=== PATIENT | male | born 1975 | race Two or more races ===

== ENCOUNTER 2017-04-29 09:37 | Emergency (ER) | payer OTHER ==
[~2017-04-29] VITALS: Ht 172.7 cm; Wt 83.9 kg
[2017-04-29 09:37] VITALS: BP 121/79
--- NOTE | 2017-04-29 09:42 | NUR ---
AAOX2, BIBRA 88 FROM THE [place] FOR PSYCH EVAL, PATIENT WAS AGITATED AND STATED THAT HE WANTED TO HURT HIMSELF BUT NO PLAN AT THIS TIME. SKIN IS WARM AND DRY. RESP IS EVEN AND UNLABORED WITH NAD NOTED. DR JERRY AT BS FOR EVAL.
[2017-04-29] MEDS ORDERED: OLANZAPINE 10 MG VIAL IM ONE ×2 (09:58→10:00)
[2017-04-29 10:22] LABS: BASOPHILS # (AUTO) 0.1 /CMM (0.0-0.2); BASOPHILS % (AUTO) 0.7 % (0.0-2.0); EOSINOPHILS # (AUTO) 0.1 /CMM (0.0-0.7); EOSINOPHILS % (AUTO) 1.4 % (0.0-6.0); HEMATOCRIT 38 % (39-51); LYMPHOCYTES # (AUTO) 2.2 /CMM (0.8-4.8); LYMPHOCYTES % (AUTO) 26.1 % (20.0-44.0); MEAN CORPUSCULAR HEMOGLOBIN 32 PG (26.0-33.0); MEAN CORPUSCULAR HGB CONC 34 g/dl (31.0-36.0); MEAN CORPUSCULAR VOLUME 95 fL (80-96); MONOCYTES # (AUTO) 0.7 /CMM (0.1-1.30); MONOCYTES % (AUTO) 8.5 % (2.0-12.0); NEUTROPHILS # (AUTO) 5.4 /CMM (1.8-8.9); NEUTROPHILS % (AUTO) 63.3 % (43.0-81.0); PLATELET COUNT (AUTO) 371 /CMM (150-450); RDW COEFFICIENT OF VARIATION 12.9 (11.5-15.0); RED BLOOD CELL COUNT(AUTO) 4.02 MIL/uL (4.5-6.0); WHITE BLOOD COUNT (AUTO) 8.5 K/uL (4.3-11.0)
--- NOTE | 2017-04-29 10:24 | NUR ---
PATIENT UNABLE TO URINATE AT THIS MOMENT. DR JERRY MADE AWARE.
[2017-04-29 10:34] LABS: APPEARANCE,URINE Clear (CLEAR); BILIRUBIN,URINE Negative (NEGATIVE); BLOOD, URINE Negative Ery/uL (NEGATIVE); COLOR,URINE Yellow (YELLOW); KETONES,URINE Negative (NEGATIVE); LEUKOCYTE ESTERASE ,URINE Negative (NEGATIVE); NITRITE, URINE Negative (NEGATIVE); PROTEIN,URINE Negative (NEGATIVE); UGLUCOSE Negative (NEGATIVE); UROBILINOGEN,URINE 0.2 EU/dL (0.2)
[2017-04-29 10:37] LABS: ALANINE AMINOTRANSFERASE 19 U/L (12-78); ALBUMIN 3.9 g/dL (3.4-5.0); ALCOHOL, BLOOD < 3 mg/dL (0-0); ALKALINE PHOSPHATASE 85 U/L (46-116); ASPARTATE AMINOTRANSFERASE 22 U/L (15-37); BILIRUBIN,DIRECT 0.1 mg/dL (0.0-0.2); BILIRUBIN,TOTAL 0.4 mg/dL (0.2-1.0); CALCIUM, SERUM 8.5 mg/dL (8.5-10.1); CARBON DIOXIDE 26 mmol/L (21-32); CHLORIDE 103 mmol/L (98-107); CREATININE 0.8 mg/dL (0.6-1.3); GLUCOSE 95 mg/dL (74-106); POTASSIUM 3.9 mmol/L (3.5-5.1); SALICYLATE 2.8 mg/dL (2.8-20.0); SODIUM SERUM 138 mmol/L (136-145); TOTAL PROTEIN, SERUM 6.9 g/dL (6.4-8.2); UREA NITROGEN, BLOOD 13 mg/dL (7-18)
[2017-04-29 10:38] LABS: ACETAMINOPHEN < 10 ug/ml (10-30)
--- NOTE | 2017-04-29 13:38 | NUR ---
CALLED [facility] FOR BLS TRANSPORT. ETA 1 HOUR
--- NOTE | 2017-04-29 14:30 | NUR ---
Patient discharged to [facility] in stable condition. Written and verbal after care instructions given. Patient verbalizes understanding of instruction. REPORT GIVEN BY BIANKA RASCON TO GUSTABO CARLTON.
== END 2017-04-29 14:34 ==
LOC: ER 09:39 → EDBD 09:39 → ER 14:34
DX: F31.9 Bipolar disorder, unspecified (principal); F29 Unspecified psychosis not due to a substance or known physiological condition; F17.200 Nicotine dependence, unspecified, uncomplicated; Z98.890 Other specified postprocedural states
CPT/HCPCS: 36415; 80048-TC; 80076-TC; 80305; 81000-TC; 85025-TC; A4606; G0480; J3490; Z7610

== ENCOUNTER 2018-03-31 08:20 | Emergency (ER) | payer MEDICARE, MEDICAID ==
[~2018-03-31] VITALS: Ht 170.2 cm; Wt 83.9 kg
--- NOTE | 2018-03-31 08:32 | NUR ---
A/OX3, AMBULATORY IN A STEADY GAIT C/O ABD PAIN W/ N/V X 1 DAY. NAD VSS RR EVEN AND UNLABORED. PENDING ER MD VILLAGRAN
[2018-03-31 08:56] LABS: BASOPHILS # (AUTO) 0.2 /CMM (0.0-0.2); BASOPHILS % (AUTO) 1.2 % (0.0-2.0); EOSINOPHILS % (AUTO) 0.4 % (0.0-6.0); HEMATOCRIT 37 % (39-51); HEMOGLOBIN 12.4 g/dL (13.5-17.5); LYMPHOCYTES # (AUTO) 1.8 /CMM (0.8-4.8); LYMPHOCYTES % (AUTO) 11.9 % (20.0-44.0); MEAN CORPUSCULAR HEMOGLOBIN 32 PG (26.0-33.0); MEAN CORPUSCULAR HGB CONC 34 g/dl (31.0-36.0); MEAN CORPUSCULAR VOLUME 96 fL (80-96); MONOCYTES % (AUTO) 6.5 % (2.0-12.0); NEUTROPHILS # (AUTO) 11.7 /CMM (1.8-8.9); PLATELET COUNT (AUTO) 362 /CMM (150-450); RDW COEFFICIENT OF VARIATION 13.9 (11.5-15.0); RED BLOOD CELL COUNT(AUTO) 3.82 MIL/uL (4.5-6.0); WHITE BLOOD COUNT (AUTO) 14.8 K/uL (4.3-11.0)
[2018-03-31 09:06] LABS: CALCIUM, SERUM 8.6 mg/dL (8.5-10.1); CREATININE 0.8 mg/dL (0.6-1.3); POTASSIUM 3.3 mmol/L (3.5-5.1)
[2018-03-31 09:12] LABS: ALBUMIN 3.7 g/dL (3.4-5.0); BILIRUBIN,DIRECT 0.1 mg/dL (0.0-0.2); BILIRUBIN,TOTAL 0.3 mg/dL (0.2-1.0); TOTAL PROTEIN, SERUM 7.1 g/dL (6.4-8.2)
[2018-03-31] MEDS ORDERED: ONDANSETRON HCL/PF 4 MG/2 ML VIAL ONE (10:00)
[2018-03-31] MEDS ORDERED: ONDANSETRON HCL/PF - ER 4 MG/2 ML VIAL IV ONE (10:00)
--- NOTE | 2018-03-31 10:07 | NUR ---
IV removed. Catheter intact and site benign. Pressure and 4x4 applied to site. No bleeding noted.Patient discharged to home in stable condition. Written and verbal after care instructions given. Patient verbalizes understanding of instruction.
[2018-03-31 10:09] VITALS: BP 138/84
== END 2018-03-31 10:10 | disposition home or self-care (01) ==
LOC: ER 08:21
DX: R10.84 Generalized abdominal pain (principal); F19.10 Other psychoactive substance abuse, uncomplicated; F31.9 Bipolar disorder, unspecified; Z98.890 Other specified postprocedural states; F17.200 Nicotine dependence, unspecified, uncomplicated; F10.10 Alcohol abuse, uncomplicated; Y90.9 Presence of alcohol in blood, level not specified; Z60.2 Problems related to living alone
CPT/HCPCS: 36415; 74176; 80048; 80076; 83690; 85025; 96374; 99285; A4606; J2405; Z7610

== ENCOUNTER 2018-04-03 19:20 | Emergency (ER) | payer MEDICARE, MEDICAID ==
[~2018-04-03] VITALS: Ht 172.7 cm; Wt 90.7 kg
--- NOTE | 2018-04-03 19:36 | NUR ---
PT VIGNESH FROOM THE STREETS TO ER BED 13. PER REPORT, PT WAS NOTED TO BE EXHIBITING BIZZARRE BEHAVIOR, PT WAS SEEN IN ED MULTIPLE TIMES FOR DRUG RELATED ISSUES. AT THIS TIME, PT APPEARS ALTERED, AGITATED AND AGRESSIVE TO STAFF. EVELIA DIAMOND CUTTER AT BEDSIDE. RESTRAINTS ORDERED AND CARRIED OUT.
[2018-04-03] MEDS ORDERED: OLANZAPINE 10 MG VIAL IM ONE (20:00)
[2018-04-03] MEDS ORDERED: diphenhydrAMINE HCL 50 MG/ML VIAL ONE (20:06)
[2018-04-03] MEDS ORDERED: HALOPERIDOL LACTATE INJ 5 MG/ML VIAL ONE (20:06)
[2018-04-03] MEDS ORDERED: LORAZEPAM INJ 2 MG/ML VIAL ONE (20:08)
--- NOTE | 2018-04-03 20:11 | NUR ---
PT MEDICATED ORDERED. SEE EMAR.
[2018-04-03] MEDS ORDERED: diphenhydrAMINE HCL 50 MG/ML VIAL IM/IV ONE (20:30)
[2018-04-03] MEDS ORDERED: LORAZEPAM INJ 2 MG/ML VIAL IM/IV ONE (20:30)
[2018-04-03] MEDS ORDERED: HALOPERIDOL LACTATE INJ 5 MG/ML VIAL IM ONE (20:30)
--- NOTE | 2018-04-03 20:43 | NUR ---
RESPIRATORY THERAPY DIRECTOR AT BEDSIDE FOR BLOOD DRAW.
[2018-04-03 20:50] LABS: BASOPHILS # (AUTO) 0.3 /CMM (0.0-0.2); BASOPHILS % (AUTO) 2.2 % (0.0-2.0); EOSINOPHILS % (AUTO) 0.3 % (0.0-6.0); HEMATOCRIT 38 % (39-51); HEMOGLOBIN 12.5 g/dL (13.5-17.5); LYMPHOCYTES # (AUTO) 2.3 /CMM (0.8-4.8); LYMPHOCYTES % (AUTO) 18.5 % (20.0-44.0); MEAN CORPUSCULAR HEMOGLOBIN 32 PG (26.0-33.0); MEAN CORPUSCULAR HGB CONC 33 g/dl (31.0-36.0); MEAN CORPUSCULAR VOLUME 97 fL (80-96); MONOCYTES # (AUTO) 1.3 /CMM (0.1-1.30); MONOCYTES % (AUTO) 10.3 % (2.0-12.0); NEUTROPHILS # (AUTO) 8.4 /CMM (1.8-8.9); NEUTROPHILS % (AUTO) 68.7 % (43.0-81.0); PLATELET COUNT (AUTO) 402 /CMM (150-450); RDW COEFFICIENT OF VARIATION 13.1 (11.5-15.0); RED BLOOD CELL COUNT(AUTO) 3.88 MIL/uL (4.5-6.0); WHITE BLOOD COUNT (AUTO) 12.3 K/uL (4.3-11.0)
[2018-04-03 21:15] LABS: CALCIUM, SERUM 9.4 mg/dL (8.5-10.1); CARBON DIOXIDE 24 mmol/L (21-32); CHLORIDE 100 mmol/L (98-107); GLUCOSE 122 mg/dL (74-106); SODIUM SERUM 135 mmol/L (136-145); UREA NITROGEN, BLOOD 12 mg/dL (7-18)
[2018-04-03 21:17] LABS: POTASSIUM 2.8 mmol/L (3.5-5.1)
--- NOTE | 2018-04-03 21:20 | NUR ---
PT IS SLEEPING, RESTRAINT D/C'D PER EVELIA ENTRY LEVEL ASSISTANT MANAGER ORDER. WILL CONTINUE TO MONITOR.
[2018-04-03 21:21] LABS: ALANINE AMINOTRANSFERASE 48 U/L (12-78); ALBUMIN 4.1 g/dL (3.4-5.0); ALCOHOL, BLOOD < 3 mg/dL (0-0); ALKALINE PHOSPHATASE 90 U/L (46-116); ASPARTATE AMINOTRANSFERASE 57 U/L (15-37); BILIRUBIN,DIRECT 0.1 mg/dL (0.0-0.2); BILIRUBIN,TOTAL 0.5 mg/dL (0.2-1.0); TOTAL PROTEIN, SERUM 8.2 g/dL (6.4-8.2)
[2018-04-03] MEDS ORDERED: POTASSIUM CL. PREMIX PERIPHER. 50 ML IV SCH (21:30)
[2018-04-03] MEDS ORDERED: POTASSIUM CL. PREMIX PERIPHER. 100 ML ONE ×2 (21:33→23:14)
[2018-04-03] MEDS: POTASSIUM CL. PREMIX PERIPHER. 50 ML IV SCH ×3 (21:34→23:38)
--- NOTE | 2018-04-03 21:43 | NUR ---
PT SLEEPING IN BED. ON MONITOR W/ STABLE VITALS. WILL CONTINUE TO MONITOR.
--- NOTE | 2018-04-04 | NUR ---
REPORT TO CHARGE NURSE HUNTER FOR JANNETH.
[2018-04-04] MEDS ORDERED: POTASSIUM CL. PREMIX PERIPHER. 50 ML ONE (01:05)
--- NOTE | 2018-04-04 01:10 | NUR ---
MEDICATED WITH 3RD POTASSIUM BAG; IVPB VIA 18G LT HAND; END TIME 0210. ON MONITOR. NO S/S OF DISTRESS NOTED. RESP EVEN AND UNLABORED.
--- NOTE | 2018-04-04 02:15 | NUR ---
4TH POTASSIUM IVPB VIA 18G LT HAND; END TIME 314. REMAINS RESTING WITH NO S/S OF DISTRESS. RESP EVEN AND UNLABORED. STILL ON MONITOR.
--- NOTE | 2018-04-04 03:25 | NUR ---
ALL MEDS COMPLETED; NAD NOTED. RESP EVEN AND UNLABORED. STILL MONITORED.
--- NOTE | 2018-04-04 03:36 | NUR ---
LAB AT BEDSIDE FOR REPEAT POTASSIUM DRAW.
[2018-04-04 03:54] LABS: CALCIUM, SERUM 8.8 mg/dL (8.5-10.1); CREATININE 0.8 mg/dL (0.6-1.3); POTASSIUM 3.6 mmol/L (3.5-5.1)
--- NOTE | 2018-04-04 04:49 | NUR ---
GIVEN ICE WATER REQUESTED.
--- NOTE | 2018-04-04 05:18 | NUR ---
AAO X4; DENIES SI/HI OR ANY MEDICAL C/O. Patient discharged to home in stable condition. Written and verbal after care instructions given. Patient verbalizes understanding of instruction. IV removed. Catheter intact and site benign. Pressure and 4x4 applied to site. No bleeding noted. Ambulatory with a steady gait
[2018-04-04 05:19] VITALS: BP 126/73
== END 2018-04-04 05:19 | disposition home or self-care (01) ==
LOC: ER 19:23
DX: F29 Unspecified psychosis not due to a substance or known physiological condition (principal); E87.6 Hypokalemia; F31.9 Bipolar disorder, unspecified; F10.10 Alcohol abuse, uncomplicated; F17.200 Nicotine dependence, unspecified, uncomplicated; Y90.0 Blood alcohol level of less than 20 mg/100 ml; Z98.890 Other specified postprocedural states; Z60.2 Problems related to living alone
CPT/HCPCS: 36415 ×2; 80048 ×2; 80076; 85025; 96365; 96366; 96372 ×3; 99285; A4606; G0480; J1200; J1630; J2060; J3480 ×3; Z7610

== ENCOUNTER 2019-08-09 07:27 | Emergency (ER) | payer MEDICARE, MEDICAID ==
[~2019-08-09] VITALS: Ht 172.7 cm; Wt 82.6 kg
--- NOTE | 2019-08-09 07:35 | NUR ---
bibra39, and [employer], not in custody, came in for bizzarre behavior, ruNNING, in to traffic per [employer]. PT IS VERBAL BUT NOT ABLE TO FORMULATE PROPER SPEECH. FLIGHT OF IDEAS NOTED. PT IS ALERT X1 BREATHING EVEN AND UNLABORED. AWAITING TO BE SEEN BY
--- NOTE | 2019-08-09 07:40 | NUR ---
called security for wanding
[2019-08-09] MEDS ORDERED: HALOPERIDOL LACTATE INJ 5 MG/ML VIAL ONE ×2 (07:42→07:43)
[2019-08-09] MEDS ORDERED: LORAZEPAM INJ 2 MG/ML VIAL ONE ×2 (07:42→07:44)
[2019-08-09 07:51] LABS: BASOPHILS # (AUTO) 0.1 /CMM (0.0-0.2); BASOPHILS % (AUTO) 0.6 % (0.0-2.0); EOSINOPHILS % (AUTO) 0.5 % (0.0-6.0); HEMATOCRIT 38 % (39-51); HEMOGLOBIN 12.7 g/dL (13.5-17.5); LYMPHOCYTES # (AUTO) 1.1 /CMM (0.8-4.8); LYMPHOCYTES % (AUTO) 11.4 % (20.0-44.0); MEAN CORPUSCULAR HGB CONC 33 g/dl (31.0-36.0); MEAN CORPUSCULAR VOLUME 98 fL (80-96); MONOCYTES # (AUTO) 0.7 /CMM (0.1-1.30); MONOCYTES % (AUTO) 7.2 % (2.0-12.0); NEUTROPHILS # (AUTO) 7.9 /CMM (1.8-8.9); NEUTROPHILS % (AUTO) 80.3 % (43.0-81.0); PLATELET COUNT (AUTO) 324 /CMM (150-450); RED BLOOD CELL COUNT(AUTO) 3.91 MIL/uL (4.5-6.0); WHITE BLOOD COUNT (AUTO) 9.8 K/uL (4.3-11.0)
[2019-08-09 07:59] LABS: CALCIUM, SERUM 9.2 mg/dL (8.5-10.1); CARBON DIOXIDE 23 mmol/L (21-32); CHLORIDE 102 mmol/L (98-107); CREATININE 0.9 mg/dL (0.6-1.3); GLUCOSE 83 mg/dL (74-106); POTASSIUM 3.9 mmol/L (3.5-5.1); SODIUM SERUM 139 mmol/L (136-145); UREA NITROGEN, BLOOD 20 mg/dL (7-18)
[2019-08-09] MEDS ORDERED: HALOPERIDOL LACTATE INJ 5 MG/ML VIAL IM ONE (08:00)
[2019-08-09] MEDS ORDERED: LORAZEPAM INJ 2 MG/ML VIAL IM ONE (08:00)
[2019-08-09 08:04] LABS: ALANINE AMINOTRANSFERASE 40 U/L (12-78); ALBUMIN 4.3 g/dL (3.4-5.0); ALCOHOL, BLOOD < 3 mg/dL (0-0); ALKALINE PHOSPHATASE 79 U/L (46-116); ASPARTATE AMINOTRANSFERASE 56 U/L (15-37); BILIRUBIN,DIRECT 0.2 mg/dL (0.0-0.2); BILIRUBIN,TOTAL 0.7 mg/dL (0.2-1.0); TOTAL PROTEIN, SERUM 7.7 g/dL (6.4-8.2)
[2019-08-09 08:05] LABS: ACETAMINOPHEN 0 ug/ml (10-30); SALICYLATE 1.7 mg/dL (2.8-20.0)
--- NOTE | 2019-08-09 08:20 | NUR ---
WATER PROVIDED TO PT. PT NOT ABLE TO VOID
--- NOTE | 2019-08-09 09:08 | NUR ---
PT IS ASLEEP, VS ARE STABLE WITH NO DISTRESS NOTED. WILL CONITNUE TO MONITOR
--- NOTE | 2019-08-09 11:05 | NUR ---
PT ASLEEP WITH NO DISTRESS.
--- NOTE | 2019-08-09 14:06 | NUR ---
PT REMAINS ASLEEP WITH NO DISTRESS. OFFERED FOOD TO PT BUT DECLINED. WILL CONTINUE TO MONITOR
--- NOTE | 2019-08-09 16:00 | NUR ---
PT AWAKE AND FOOD PROVIDED FOR PATIENT
[2019-08-09 16:10] LABS: APPEARANCE,URINE Clear (CLEAR); BILIRUBIN,URINE SMALL (NEGATIVE); BLOOD, URINE Negative Ery/uL (NEGATIVE); COLOR,URINE Dark Yellow (YELLOW); KETONES,URINE 40 (NEGATIVE); LEUKOCYTE ESTERASE ,URINE Negative (NEGATIVE); NITRITE, URINE Negative (NEGATIVE); PH,URINE 5.5 (5.0-8.0); PROTEIN,URINE 30 mg/dl (NEGATIVE); UGLUCOSE Negative (NEGATIVE)
[2019-08-09 16:17] LABS: BACTERIA,URINE Few /HPF (None Seen); MUCUS,URINE Few /LPF (None Seen); SPERM,URINE Few /HPF (None Seen); SQUAMOUS EPITHELIAL CELL,UR Rare /HPF (None Seen); WBC,URINE 0-2 /HPF (0-3)
[2019-08-09 17:29] VITALS: BP 117/68
--- NOTE | 2019-08-09 17:48 | NUR ---
Patient given written and verbal discharge instructions. Patient verbalizes understanding of instructions. Patient is ambulatory with steady gait. Refuses offer of senior care placement. Patient given list of available shelters in surrounding area.
== END 2019-08-09 17:50 | disposition home or self-care (01) ==
LOC: ER 07:28
DX: F31.9 Bipolar disorder, unspecified (principal); F19.10 Other psychoactive substance abuse, uncomplicated; F23 Brief psychotic disorder; F10.10 Alcohol abuse, uncomplicated; F17.200 Nicotine dependence, unspecified, uncomplicated; Y90.0 Blood alcohol level of less than 20 mg/100 ml; Z98.890 Other specified postprocedural states; Z60.2 Problems related to living alone
CPT/HCPCS: 36415; 80048; 80076; 80305; 80307; 80329; 81001; 85025; 96372 ×2; 99284; G0480; J1630; J2060; 81000-TC

== ENCOUNTER 2020-06-28 02:05 | Emergency (ER) | payer MEDICARE, OTHER ==
--- NOTE | 2020-06-28 02:06 | NUR ---
ASKED PT TO WEAR MASK, PT REFUSE AND STATES "I DON'T NEED THIS, I'M OUT OF HERE."
== END 2020-06-28 03:57 | disposition left against medical advice (07) ==
LOC: ER 02:08
DX: Z53.21 Procedure and treatment not carried out due to patient leaving prior to being seen by health care provider (principal); F31.9 Bipolar disorder, unspecified; F17.200 Nicotine dependence, unspecified, uncomplicated; Z98.890 Other specified postprocedural states; Z60.2 Problems related to living alone

== ENCOUNTER 2020-08-17 06:16 | Emergency (ER) | payer MEDICARE, OTHER ==
[~2020-08-17] VITALS: Ht 172.7 cm; Wt 82.6 kg
[2020-08-17 06:34] VITALS: BP 156/89
--- NOTE | 2020-08-17 07:10 | NUR ---
called to room in,no answer
--- NOTE | 2020-08-17 07:30 | NUR ---
called to room in,no answer
--- NOTE | 2020-08-17 08:30 | NUR ---
called to room-in, no answer
== END 2020-08-17 08:39 | disposition left against medical advice (07) ==
LOC: ER 06:16
DX: R44.0 Auditory hallucinations (principal); Z53.21 Procedure and treatment not carried out due to patient leaving prior to being seen by health care provider

== ENCOUNTER 2020-11-09 07:59 | Emergency (ER) | payer MEDICARE, OTHER ==
[~2020-11-09] VITALS: Ht 177.8 cm; Wt 74.8 kg
--- NOTE | 2020-11-09 08:01 | NUR ---
BIB RA, PT WAS FOUND ON STREET RUNNING THROUGH TRAFFIC, PATIENT NOTED SCREAMING WITH DISORGANIZED SPEECH. TO ER BED 15, HOOKED TO MONITOR. CHANGED TO HOSP GOWN, WARM BLANKET PROVIDED, NAD NOTED. AWAITING MD VILLAGRAN. SITTER AT BEDSIDE FOR SAFETY
[2020-11-09] MEDS ORDERED: OLANZAPINE 10 MG VIAL IM ONE ×2 (08:15→08:30)
[2020-11-09] MEDS ORDERED: diphenhydrAMINE HCL 50 MG/ML VIAL ONE (08:15)
[2020-11-09] MEDS ORDERED: diphenhydrAMINE HCL 50 MG/ML VIAL IM ONE (08:30)
--- NOTE | 2020-11-09 09:00 | NUR ---
URINE SAMPLE COLLECTED VIA STRAIGHT CATHETER, SENT TO LAB
[2020-11-09] MEDS ORDERED: LORAZEPAM INJ 2 MG/ML VIAL ONE (09:21)
[2020-11-09 09:22] LABS: BILIRUBIN,URINE SMALL (NEGATIVE); LEUKOCYTE ESTERASE ,URINE NEGATIVE (NEGATIVE); NITRITE, URINE NEGATIVE (NEGATIVE); PH,URINE 5.5 (5.0-8.0); PROTEIN,URINE NEGATIVE (NEGATIVE); UGLUCOSE NEGATIVE (NEGATIVE); UROBILINOGEN,URINE 0.2 EU/dL (0.2)
[2020-11-09 09:24] LABS: COLOR,URINE DARK YELLOW (YELLOW)
[2020-11-09] MEDS ORDERED: LORAZEPAM INJ 2 MG/ML VIAL IM ONE (09:30)
[2020-11-09 09:31] LABS: RBC,URINE NONE SEEN /HPF (0-2)
[2020-11-09 09:32] LABS: BACTERIA,URINE None seen /HPF (None Seen); SQUAMOUS EPITHELIAL CELL,UR Few /HPF (None Seen); WBC,URINE 0-2 /HPF (0-3)
[2020-11-09 10:03] LABS: BASOPHILS # (AUTO) 0.1 /CMM (0.0-0.2); BASOPHILS % (AUTO) 0.9 % (0.0-2.0); CALCIUM, SERUM 8.8 mg/dL (8.5-10.1); CARBON DIOXIDE 24 mmol/L (21-32); CHLORIDE 105 mmol/L (98-107); CREATININE 0.6 mg/dL (0.6-1.3); EOSINOPHILS % (AUTO) 0.8 % (0.0-6.0); GLUCOSE 78 mg/dL (74-106); HEMATOCRIT 35 % (39-51); HEMOGLOBIN 11.9 g/dL (13.5-17.5); LYMPHOCYTES # (AUTO) 2.3 /CMM (0.8-4.8); LYMPHOCYTES % (AUTO) 22.6 % (20.0-44.0); MEAN CORPUSCULAR HGB CONC 34 g/dl (31.0-36.0); MEAN CORPUSCULAR VOLUME 96 fL (80-96); MONOCYTES # (AUTO) 0.7 /CMM (0.1-1.30); MONOCYTES % (AUTO) 6.6 % (2.0-12.0); NEUTROPHILS % (AUTO) 69.1 % (43.0-81.0); PLATELET COUNT (AUTO) 410 /CMM (150-450); POTASSIUM 4.2 mmol/L (3.5-5.1); RED BLOOD CELL COUNT(AUTO) 3.64 MIL/uL (4.5-6.0); SODIUM SERUM 140 mmol/L (136-145); UREA NITROGEN, BLOOD 21 mg/dL (7-18); WHITE BLOOD COUNT (AUTO) 10.1 K/uL (4.3-11.0)
[2020-11-09 10:09] LABS: ACETAMINOPHEN 0 ug/ml (10-30); ALANINE AMINOTRANSFERASE 38 U/L (12-78); ALBUMIN 3.9 g/dL (3.4-5.0); ALCOHOL, BLOOD < 3 mg/dL (0-0); ALKALINE PHOSPHATASE 88 U/L (46-116); ASPARTATE AMINOTRANSFERASE 54 U/L (15-37); BILIRUBIN,DIRECT 0.1 mg/dL (0.0-0.2); BILIRUBIN,TOTAL 0.4 mg/dL (0.2-1.0); TOTAL PROTEIN, SERUM 7.2 g/dL (6.4-8.2)
--- NOTE | 2020-11-09 12:06 | NUR ---
PATIENT IN BED ASLEEP, AROUSABLE BY VOICE. HOOKED TO MONITOR, VSS. SITTER AT BEDSIDE
--- NOTE | 2020-11-09 15:42 | NUR ---
PATIENT IN BED ASLEEP, AROUSABLE BY VOICE. HOOKED TO MONITOR, VSS. SITTER AT BEDSIDE
--- NOTE | 2020-11-09 19:12 | NUR ---
PATIENT IN BED ASLEEP, AROUSABLE BY VOICE. HOOKED TO MONITOR, VSS. SITTER AT BEDSIDE
--- NOTE | 2020-11-10 06:10 | NUR ---
Patient discharged to home in stable condition. Written and verbal after care instructions given. Patient verbalizes understanding of instruction.
[2020-11-10 06:14] VITALS: BP 130/75
== END 2020-11-10 06:14 | disposition home or self-care (01) ==
LOC: ER 08:02
DX: F15.10 Other stimulant abuse, uncomplicated (principal); F17.200 Nicotine dependence, unspecified, uncomplicated; F20.0 Paranoid schizophrenia; F31.9 Bipolar disorder, unspecified; Z98.890 Other specified postprocedural states; Z60.2 Problems related to living alone
CPT/HCPCS: 36415; 80048; 80076; 80299; 80307; 80320; 81001; 85025; 96372 ×2; 99285; J1200; J2060; J3490; G0480

== ENCOUNTER 2022-07-20 03:03 | Emergency (ER) | payer MEDICARE, OTHER ==
--- NOTE | 2022-07-20 04:55 | NUR ---
CALLED TO TRIAGE NO RESPONSE
--- NOTE | 2022-07-20 05:01 | NUR ---
Note kayla in EDM - 07/20/22 at 0515 by JUDY BIBS C/O SI WITH PLAN TO CUT HIMSELF. REQUESTING [facility] FOR VOLUNTARY PSYCH ADMISSION. PT AWAKE AND ALERT BREATHING UNLABORED. PT CHANGED INTO GOWN AND BELONGINGS PLACED IN LOCKER. SAFETY MEASURES IN PLACE.
--- NOTE | 2022-07-20 05:02 | NUR ---
Donovan garza in [facility] - 07/20/22 at 0515 by JUDY COVID SWAB COLLECTED AND SENT TO LAB
--- NOTE | 2022-07-20 05:03 | NUR ---
Donovan garza in [facility] - 07/20/22 at 0515 by JUDY URINE COLLECTED AND SENT O LAB
--- NOTE | 2022-07-20 05:26 | NUR ---
CALLED TO TRIAGE NO RESPONSE
== END 2022-07-20 05:26 | disposition left against medical advice (07) ==
LOC: ER 03:09
DX: Z53.21 Procedure and treatment not carried out due to patient leaving prior to being seen by health care provider (principal)

== ENCOUNTER 2024-04-27 01:58 | Inpatient (IN) | payer MEDICARE, OTHER ==
[~2024-04-27] VITALS: Ht 175.3 cm; Wt 90.7 kg
[2024-04-27 02:52] LABS: BASOPHILS # (AUTO) 0.1 K/uL (0.0-0.2); BASOPHILS % (AUTO) 0.6 % (0.0-2.0); HEMATOCRIT 37 % (39-51); LYMPHOCYTES # (AUTO) 1.1 K/uL (0.8-4.8); LYMPHOCYTES % (AUTO) 9.5 % (20.0-44.0); MEAN CORPUSCULAR HEMOGLOBIN 32 PG (26.0-33.0); MEAN CORPUSCULAR HGB CONC 33 g/dl (31.0-36.0); MEAN CORPUSCULAR VOLUME 96 fL (80-96); MONOCYTES # (AUTO) 1.1 K/uL (0.1-1.30); MONOCYTES % (AUTO) 9.1 % (2.0-12.0); NEUTROPHILS # (AUTO) 9.5 K/uL (1.8-8.9); NEUTROPHILS % (AUTO) 80.8 % (43.0-81.0); PLATELET COUNT (AUTO) 317 K/uL (150-450); RED BLOOD CELL COUNT(AUTO) 3.82 MIL/uL (4.5-6.0); RED CELL DISTRIBUTION WIDTH 14.4 % (11.5-15.0); WHITE BLOOD COUNT (AUTO) 11.8 K/uL (4.3-11.0)
[2024-04-27 03:07] LABS: ALANINE AMINOTRANSFERASE 45 U/L (12-78); ALBUMIN 4.1 g/dL (3.4-5.0); ALKALINE PHOSPHATASE 87 U/L (46-116); ASPARTATE AMINOTRANSFERASE 24 U/L (15-37); BILIRUBIN,TOTAL 0.3 mg/dL (0.2-1.0); CALCIUM, SERUM 9.9 mg/dL (8.5-10.1); CARBON DIOXIDE 26 mmol/L (21-32); CHLORIDE 98 mmol/L (98-107); CREATININE 0.7 mg/dL (0.6-1.3); GLUCOSE 122 mg/dL (74-106); LIPASE 17 U/L (16-77); POTASSIUM 4.1 mmol/L (3.5-5.1); SODIUM SERUM 137 mmol/L (136-145); UREA NITROGEN, BLOOD 12 mg/dL (7-18)
[2024-04-27 03:25] LABS: ALCOHOL, BLOOD < 3 mg/dL (0-10)
[2024-04-27 03:26] LABS: LACTIC ACID 2.9 mmol/L (0.4-2.0)
--- NOTE | 2024-04-27 03:26 | NUR ---
LACTIC 2.9
[2024-04-27] MEDS ORDERED: CEFTRIAXONE 1GM BAG (ER ONLY) 50 ML IV ONE (04:01)
[2024-04-27] MEDS: CEFTRIAXONE 1 G in IV D5W 50 ML IV ONE (04:13)
[2024-04-27] MEDS: IV NS 0.9% 1,000 ML IV ONE ×2 (04:13)
--- NOTE | 2024-04-27 05:05 | NUR ---
CALLED WAFER LINE WORKER AT 3W PER WAFER LINE WORKER LEONA "THEY WILL NOT TAKE PATIENT UNTIL NEXT SHIFT"
[2024-04-27] MEDS ORDERED: Z GUARD REMEDY 4 OZ OINT TP PRN (05:30)
[2024-04-27] MEDS ORDERED: ONDANSETRON HCL/PF 4 MG/2 ML VIAL IVP PRN (05:30)
[2024-04-27] MEDS ORDERED: METRONIDAZOLE 500MG/ NS 100ML 500 MG in PREMIX 1 EA IV SCH (05:30)
[2024-04-27 05:53] LABS: BASOPHILS % (AUTO) 0.2 % (0.0-2.0); EOSINOPHILS % (AUTO) 0.2 % (0.0-6.0); HEMATOCRIT 35 % (39-51); HEMOGLOBIN 11.4 g/dL (13.5-17.5); LYMPHOCYTES # (AUTO) 1.5 K/uL (0.8-4.8); LYMPHOCYTES % (AUTO) 13.3 % (20.0-44.0); MEAN CORPUSCULAR HEMOGLOBIN 32 PG (26.0-33.0); MEAN CORPUSCULAR HGB CONC 33 g/dl (31.0-36.0); MEAN CORPUSCULAR VOLUME 96 fL (80-96); MONOCYTES # (AUTO) 1.2 K/uL (0.1-1.30); MONOCYTES % (AUTO) 10.5 % (2.0-12.0); NEUTROPHILS # (AUTO) 8.8 K/uL (1.8-8.9); NEUTROPHILS % (AUTO) 75.8 % (43.0-81.0); PLATELET COUNT (AUTO) 297 K/uL (150-450); RED BLOOD CELL COUNT(AUTO) 3.59 MIL/uL (4.5-6.0); RED CELL DISTRIBUTION WIDTH 14.4 % (11.5-15.0); WHITE BLOOD COUNT (AUTO) 11.6 K/uL (4.3-11.0)
[2024-04-27 06:09] LABS: BILIRUBIN,DIRECT 0.1 mg/dL (0.0-0.2)
[2024-04-27 06:10] LABS: ALBUMIN 3.7 g/dL (3.4-5.0); BILIRUBIN,DIRECT 0.1 mg/dL (0.0-0.2); BILIRUBIN,TOTAL 0.3 mg/dL (0.2-1.0); CALCIUM, SERUM 9.1 mg/dL (8.5-10.1); CREATININE 0.7 mg/dL (0.6-1.3); POTASSIUM 3.8 mmol/L (3.5-5.1); TOTAL PROTEIN, SERUM 7.3 g/dL (6.4-8.2)
[2024-04-27 06:34] LABS: LACTIC ACID REFLEX 2.6 mmol/L (0.4-1.9)
[2024-04-27] MEDS: ZOSYN IVPB 3.375 G in IV D5W 50ml IV ONE (07:00)
[2024-04-27] MEDS ORDERED: PIPERACI/TAZO 3.375GM/D5W 50ML PB IV ONE (07:26)
--- NOTE | 2024-04-27 07:45 | NUR ---
report given to Kam CARLTON to continue plan of care.
[2024-04-27] MEDS ORDERED: OMEP20TA20 PO (07:46)
[2024-04-27] MEDS ORDERED: OLAN10TA3 PO (07:46)
--- NOTE | 2024-04-27 07:48 | NUR ---
wheeled patient via gurney accompanied by emt and rn in no distress.
[2024-04-27 08:00] VITALS: BP 144/83; TEMP 98.4; O2SAT 100
[2024-04-27 08:19] LABS: APPEARANCE,URINE CLEAR (CLEAR); BILIRUBIN,URINE NEGATIVE (NEGATIVE); BLOOD, URINE NEGATIVE Ery/uL (NEGATIVE); COLOR,URINE YELLOW (YELLOW); KETONES,URINE NEGATIVE (NEGATIVE); LEUKOCYTE ESTERASE ,URINE NEGATIVE (NEGATIVE); NITRITE, URINE NEGATIVE (NEGATIVE); PROTEIN,URINE NEGATIVE (NEGATIVE); UGLUCOSE NEGATIVE (NEGATIVE); UROBILINOGEN,URINE 0.2 EU/dL (0.2)
[2024-04-27 08:34] LABS: AMPHETAMINE, URINE POSITIVE (NEGATIVE); BARBITURATE, URINE NEGATIVE (NEGATIVE); BENZODIAZEPINE, URINE NEGATIVE (NEGATIVE); COCCAINE, URINE NEGATIVE (NEGATIVE); OPIATE, URINE NEGATIVE (NEGATIVE)
[2024-04-27 08:37] LABS: CANNABINOID, URINE POSITIVE (NEGATIVE)
[2024-04-27 09:10] LABS: PHENCYCLIDINE SCREEN,URINE NEGATIVE (NEGATIVE)
[2024-04-27] MEDS: PANTOPRAZOLE 40 MG VIAL IV SCH (10:24)
[2024-04-27] MEDS: IV NS 0.9% 1,000 ML IV PRN (11:29)
[2024-04-27] MEDS: METRONIDAZOLE 500MG/ NS 100ML 500 MG in PREMIX 1 EA IV SCH (12:08)
[2024-04-27] MEDS: PIPERACILLIN /TAZOBACTAM 3.375 G in IV D5W 100 ML IV SCH (13:22)
[2024-04-27 16:00] VITALS: BP 129/73; TEMP 97.7; O2SAT 98
[2024-04-27] MEDS: MORPHINE SULFATE INJ 2 MG/ML DISP.SYRIN IV PRN (16:36)
--- NOTE | 2024-04-27 20:00 | NUR ---
MS RN OPENING NOTES PATIENT AWAKE ON BED AND ON SEMI FOWLERS. ALERT AND ORIENTED X 4. ON ROOM AIR TOLERATING WELL AND WITH CLEAR AND NONLABORED BREATHING NOTED. NO SIGNS AND SYMPTOMS OF RESPIRATORY DISTRESS NOTED. WITH IV ACCESS ON HIS LEFT ANTECUBITAL VEIN G#20 PATENT, INTACT AND INFUSING NSS AT 75 ML/HR WELL. ANOTHER IV ACCESS ON HIS RIGHT AC G#18 WAS A BIT SWOLLEN AND FIRM RESISTANCE NOTED UPON TRYING TO FLUSH - IMMEDIATELY REMOVED IV ACCESS. NO EXCESSIVE BLEEDING NOTED UPON REMOVAL OF IV ACCESS ON RAC. AMBULATORY AND USES URINAL. ALL FALL AND SAFETY MEASURES IMPLEMENTED: BED IN LOWEST AND LOCKED POSITION, SIDE RAILS X 2, CALL LIGHT AND TABLE PLACED WITHIN PATIENT'S REACH. WILL CONTINUE TO MONITOR.
--- NOTE | 2024-04-27 21:40 | NUR ---
MS RN NOTES COMPLAINED OF 10/10 ABDOMINAL PAIN AND REQUESTED FOR PAIN MEDICATION. MORPHINE 2 MG IV GIVEN PRESCRIBED.
[2024-04-27 22:07] VITALS: BP 128/79; TEMP 99.5; O2SAT 96
[2024-04-28 06:30] LABS: BASOPHILS % (AUTO) 0.4 % (0.0-2.0); EOSINOPHILS % (AUTO) 0.3 % (0.0-6.0); HEMATOCRIT 36 % (39-51); LYMPHOCYTES # (AUTO) 0.9 K/uL (0.8-4.8); LYMPHOCYTES % (AUTO) 9.4 % (20.0-44.0); MEAN CORPUSCULAR HEMOGLOBIN 31 PG (26.0-33.0); MEAN CORPUSCULAR HGB CONC 33 g/dl (31.0-36.0); MEAN CORPUSCULAR VOLUME 95 fL (80-96); MONOCYTES # (AUTO) 1.6 K/uL (0.1-1.30); MONOCYTES % (AUTO) 16.3 % (2.0-12.0); NEUTROPHILS # (AUTO) 7.1 K/uL (1.8-8.9); NEUTROPHILS % (AUTO) 73.6 % (43.0-81.0); PLATELET COUNT (AUTO) 290 K/uL (150-450); RED BLOOD CELL COUNT(AUTO) 3.81 MIL/uL (4.5-6.0); RED CELL DISTRIBUTION WIDTH 14.3 % (11.5-15.0); WHITE BLOOD COUNT (AUTO) 9.6 K/uL (4.3-11.0)
[2024-04-28 06:54] LABS: ALBUMIN 3.3 g/dL (3.4-5.0); BILIRUBIN,TOTAL 1.4 mg/dL (0.2-1.0); CALCIUM, SERUM 9.4 mg/dL (8.5-10.1); CREATININE 0.6 mg/dL (0.6-1.3); MAGNESIUM 2.4 mg/dL (1.8-2.4); POTASSIUM 3.8 mmol/L (3.5-5.1); TOTAL PROTEIN, SERUM 7.1 g/dL (6.4-8.2)
--- NOTE | 2024-04-28 06:54 | NUR ---
MS RN CLOSING NOTES PATIENT ASLEEP ON BED BUT EASILY AWAKENED AND ON SEMI FOWLERS. ALERT AND ORIENTED X 4 BUT FORGETFUL AT TIMES. ABLE TO MAKE NEEDS KNOWN. ON ROOM AIR TOLERATING WELL AND WITH CLEAR AND NONLABORED BREATHING NOTED. NO COMPLAINTS OF PAIN OR DISCOMFORT OF THIS TIME. IV ACCESS ON HIS LEFT ANTECUBITAL VEIN G#20 STILL PATENT, INTACT AND INFUSING NSS AT 75 ML/HR WELL. REITERATION OF NOTHING BY MOUTH DIET DONE. AMBULATORY. URINE FROM URINAL DISCARDED AND NOTED CLEAR, YELLOW AND NO FOUL ODOR URINE OUTPUT. KEPT SAFE AND COMFORTABLE. ALL NURSING CONCERNS AND NEEDS ATTENDED WELL. ALL FALL AND SAFETY MEASURES IMPLEMENTED: BED IN LOWEST AND LOCKED POSITION, SIDE RAILS X 2, CALL LIGHT AND TABLE PLACED WITHIN PATIENT'S REACH. WILL ENDORSE TO MORNING SHIFT RN FOR CONTINUITY OF CARE.
--- NOTE | 2024-04-28 07:30 | NUR ---
RN MS NOTES PT IN BED, ASLEEP, EASY TO AROUSE, ALERT AND ABLE TO MAKE NEEDS KNOWN, NO COMPLAINT OF PAIN AT THIS TIME, IV FLUIDS INFUSING WELL, CALL LIGHT WITHIN REACH.
[2024-04-28 08:00] VITALS: BP 107/59; TEMP 98.8; O2SAT 94
[2024-04-28 10:59] LABS: BASOPHILS % (MANUAL) 0 % (0.0-2.0); EOSINOPHILS % (MANUAL) 1 % (0-4); LYMPHOCYTES % (MANUAL) 12 % (16-48); MONOCYTES % (MANUAL) 17 % (0-11.0); NEUTROPHILS % (MANUAL) 70 (42-76); PLATELET ESTIMATE ADEQUATE
--- NOTE | 2024-04-28 11:48 | NUR ---
RN MS NOTES RELAYED RESULT OF HIDA SCAN TO DR. KOVACS, PER MD, PT FOR POSSIBLE SURGERY, WILL SEE PT LATER TODAY, PT INFORMED OF PLAN, KEPT NPO.
--- NOTE | 2024-04-28 14:38 | NUR ---
"ammonia refrigeration worker consultation: ammonia refrigeration worker consultation requested for homelessness. The patient was alert and oriented x3. Patient was calm and cooperative during the assessment. Patient stated he has been homeless for 17 years. The patient stated prior to being at the hospital he was feeling a lot of pain in his stomach and felt dizzy. Patient stated he is alone and fully ambulatory. Patient stated he has no income and takes care of himself. Patient stated he has schizophrenia and bipolar disorder and is taking medication for it. 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 Patient denied having any visual/auditory hallucinations. Patient denied any SI/HI ideation. Patient was accepting of homeless walk in resources and substance abuse resources. Patient signed the homeless waiver and social media specialist placed the homeless waiver in the patient's chart. DC PLAN: ammonia refrigeration worker will follow up with CM in regards to patients discharge plan. Substance Abuse resources provided included: [facility] Substance Abuse Self-Helpline ([facility]) ; [facility] [address] [facility] [id number] ; [facility] [id number] [place] [phone] ; Shelters: [facility] Provider: [facility] [place] [address]: [address] [address] of Beds: 47 Population Served: [facility] 6 | [facility] Provider: [facility] Address: [address] [address]# of Beds: [address]Phone Number: population Served: [facility] [employer] [place] Provider: [facility] Address: [address] [address] [address] # of Beds: 56 Population Served: [facility]"
[2024-04-28 16:15] VITALS: BP 95/62; TEMP 98.8; O2SAT 94
--- NOTE | 2024-04-28 18:08 | NUR ---
RN MS NOTES PT SEEN AND EXAMINED BY DR. KOVACS, PLAN FOR SURGERY DISCUSSED WITH PT, VERBALIZED UNDERSTANDING, PT SIGNED CONSENTS, PRE-OP ORDERS RECEIVED FROM MD, NOTED AND CARRIED OUT, PAIN MEDS GIVEN ORDERED, PT ABLE TO AMBULATE TO THE BATHROOM, NEEDS ATTENDED, KEPT NPO.
[2024-04-28 18:25] LABS: INR 1.08 (0.91-1.10); PARTIAL THROMBOPLASTIN TIME 30.7 SEC (24.3-34.3); PROTHROMBIN TIME 11.4 SECS (9.2-11.1)
--- NOTE | 2024-04-28 19:30 | NUR ---
MS RN OPENING NOTES PATIENT AWAKE AND SITTING ON BED. ALERT AND ORIENTED X 4. CALM, CONVERSANT AND COMFORTABLE. ON ROOM AIR TOLERATING WELL AND WITH CLEAR AND NONLABORED BREATHING NOTED. NO SIGNS AND SYMPTOMS OF RESPIRATORY DISTRESS NOTED. VERBALIZED AWARENESS OF HIS SURGERY SCHEDULED TONIGHT AT 8 PM. WITH IV ACCESS ON HIS LEFT ANTECUBITAL VEIN G#20 LEAKING NOTED. AMBULATORY. CALLED SURGERY DEPT TO ASK WHAT TIME PATIENT WILL BE ELECTRONIC SCIENCE TEACHER FOR HIS SX AND INFORMED THEM REGARDING PATIENT'S IV ACCESS. PLATE PAINTER ASKED IF WE CAN BRING PATIENT IN 15 MINUTES AND TOLD US THAT SHE'LL JUST PUT AN ACCESS WHEN PATIENT'S AT OR HOLDING AREA. WHEELED PATIENT VIA BED WITH BIANKA STEPHENS TO OR HOLDING AREA AT 2000H. WILL WAIT FOR PATIENT TO COME BACK AFTER SURGERY FOR POST OP MONITORING.
[2024-04-28 20:00] VITALS: BP 94/56; TEMP 98.4; O2SAT 96
[2024-04-28] MEDS ORDERED: SEVOFLURANE 250 ML BOTTLE IH ONE (20:13)
[2024-04-28] MEDS ORDERED: FENTANYL PF 250MCG/5ML AMPUL ONE (20:13)
[2024-04-28] MEDS ORDERED: MIDAZOLAM HCL 2 MG/2ML VIAL ONE (20:13)
[2024-04-28] MEDS ORDERED: ROCURONIUM BROMIDE 50 MG/5 ML ONE (20:14)
[2024-04-28] MEDS ORDERED: ANESTHESIA TRAY IN PYXIS 1 EA TRAY MC ONE (20:17)
[2024-04-28] MEDS ORDERED: BACITRACIN ZINC OINT (15 GM) 15 GM TUBE TP ONE (20:18)
[2024-04-28] MEDS ORDERED: LIDOCAINE 1%-EPI 1:100,000 20 ML VIAL ONE (20:18)
[2024-04-28] MEDS ORDERED: VASOPRESSIN INJ 20 UNIT/ML VIAL ONE (20:18)
[2024-04-28] MEDS ORDERED: BUPIVACAINE 0.5 % PF 150 MG/30 ML VIAL ONE (20:18)
--- NOTE | 2024-04-28 22:00 | NUR ---
MS RN NOTES PATIENT STILL IN THE OR OF THIS TIME. FLAGYL 100 MG IV SCHEDULED FOR 9 PM NOT GIVEN SINCE PATIENT IS STILL HAVING HIS SURGERY. NON ADMIN DOCUMENTED ON EMAR.
[2024-04-28] MEDS ORDERED: CELLULOSE,OXIDIZED 1 EA PACK MC ONE (22:10)
[2024-04-28 23:25] VITALS: BP 118/69; TEMP 99.5; O2SAT 94
--- NOTE | 2024-04-28 23:40 | NUR ---
MS RN NOTE PATIENT RETURNED FROM SURGERY AT ABOUT 2320 ACCOMPANIED BY BIANKA TONEY. PATIENT ALERT/ORIENTED X 4, ABLE TO MAKE NEEDS KNOWN. PATIENT REPORTS ABDOMINAL PAIN 06/10. PER DAWNA RN DON'T GIVE PAIN MEDICINE UNLESS RESPIRATIONS ARE AT LEAST 16, VITAL SIGNS BP 118/69, HR: 80, SPO2: 94%, RESP: 16, T: 99.5. PATIENT HAS RIGHT LOWER QUADRANT LINDA DRAIN TO BULB SUCTION WITH SANGUINEOUS OUTPUT NOTED. PER BIANKA TONEY ORDERS TO START PATIENT ON ICE CHIPS FIRST TO SEE HOW HE TOLERATES, STATED SHE WILL F/U WITH DR. KOVACS WHETHER TO ADVANCE DIET AFTER AND CALL ME BACK. ORDERS TO RESUME PRE-OP ORDERS. WILL CONTINUE TO MONITOR VITALS Addendum: 04/29/24 at 0005 by ANGELO MEDINA RN PATIENT WITH 3 INCISION SITES, DRESSING C/D/I
[2024-04-28 23:45] VITALS: BP 121/71; TEMP 98.6; O2SAT 95
[2024-04-29] VITALS (11 sets, daily range): BP systolic 95–123; BP diastolic 50–72; TEMP 97.7–98.8; O2SAT 95–99
--- NOTE | 2024-04-29 | NUR ---
MS RN NOTE RECEIVED CALL FROM BIANKA TONEY FROM OR, PER DR. KOVACS START WITH ICE CHIPS AND ADVANCE DIET TO CLEAR LIQUIDS AND CONTINUE TO ADVANCE TOLERATED UNTIL REGULAR DIET
--- NOTE | 2024-04-29 00:30 | NUR ---
MS RN NOTES POST OP VITAL SIGNS CHECKED ACCORDINGLY. VERBALIZED THAT HE HAS A PAIN WITH PAIN SCORE OF 10/10 AND REQUESTED FOR PAIN MEDICATION. MORPHINE 2 MG IV GIVEN AT 0019H PRESCRIBED.
--- NOTE | 2024-04-29 01:36 | NUR ---
MS RN NOTE PATIENT HAS BEEN TOLERATING ICE CHIPS, NO NAUSEA REPORTED, ADVANCED TO CLEAR LIQUIDS. WILL CONTINUE TO MONITOR
--- NOTE | 2024-04-29 01:39 | NUR ---
MS RN NOTE LINDA DRAIN FULL, EMPTIED 100 ML OF SEROSANGUINEOUS OUTPUT
--- NOTE | 2024-04-29 03:55 | NUR ---
MS RN NOTE ASSISTED PATIENT TO STAND TO USE URINAL, 500 ML OUTPUT. ALSO EMPTIED ANOTHER 75 ML OF SEROSANGUINEOUS OUTPUT FROM LINDA DRAIN. ASSISTED PATIENT BACK TO BED AND PLACED SCD'S BACK ON. PATIENT TOLERATING CLEAR LIQUIDS WELL, ADVANCING TO FULL LIQUID DIET FOR BREAKFAST
--- NOTE | 2024-04-29 05:10 | NUR ---
MS RN NOTES PATIENT WAS AWAKENED FROM SLEEP DUE TO PAIN AND REQUESTED FOR PAIN MEDICATION. MORPHINE 2 MG IV GIVEN PRESCRIBED.
--- NOTE | 2024-04-29 06:47 | NUR ---
MS RN CLOSING NOTES PATIENT ASLEEP ON BED BUT EASILY AWAKENED. ALERT AND ORIENTED X 4. ABLE TO MAKE NEEDS KNOWN. ON ROOM AIR TOLERATING WELL AND WITH CLEAR AND NONLABORED BREATHING. WITH LINDA DRAIN LOCATED ON HIS RIGHT LOWER QUADRANT OF ABDOMEN - BULB INTACT AND LINDA DRAIN OUTPUT EMPTIED AND DOCUMENTED ACCORDINGLY. 3 SMALL DRESSINGS FROM SURGICAL INCISION STILL CLEAN, DRY AND INTACT. POST OP PAIN ATTENDED AND PAIN MEDICATION ADMINISTERED PRESCRIBED. ASSISTED WITH MOBILITY AND EMPTIED URINAL AND DOCUMENTED. SCD PUMP ON BOTH LEGS IN PLACED AND FUNCTIONING WELL. IV ACCESS ON RIGHT FOREARM G#20 STILL PATENT, INTACT AND INFUSING NSS @ 75 ML/HR. KEPT SAFE AND COMFORTABLE. ALL NURSING NEEDS AND CONCERNS ATTENDED WELL. PATIENT ABLE TO TOLERATE CLEAR LIQUIDS AND ADVANCED TO FULL LIQUIDS FOR BREAKFAST. ALL FALL AND SAFETY MEASURES MAINTAINED: BED IN LOWEST AND LOCKED POSITION, BED ALARM ON, SIDE RAILS X 2, CALL LIGHT AN TABLE WITHIN PATIENT'S REACH. WILL ENDORSE TO MORNING SHIFT RN FOR CONTINUITY OF CARE.
[2024-04-29 06:57] LABS: BASOPHILS % (AUTO) 0.2 % (0.0-2.0); HEMATOCRIT 32 % (39-51); HEMOGLOBIN 10.7 g/dL (13.5-17.5); LYMPHOCYTES # (AUTO) 0.5 K/uL (0.8-4.8); LYMPHOCYTES % (AUTO) 5.6 % (20.0-44.0); MEAN CORPUSCULAR HEMOGLOBIN 32 PG (26.0-33.0); MEAN CORPUSCULAR HGB CONC 34 g/dl (31.0-36.0); MEAN CORPUSCULAR VOLUME 96 fL (80-96); NEUTROPHILS # (AUTO) 8.3 K/uL (1.8-8.9); NEUTROPHILS % (AUTO) 84.2 % (43.0-81.0); PLATELET COUNT (AUTO) 269 K/uL (150-450); RED BLOOD CELL COUNT(AUTO) 3.32 MIL/uL (4.5-6.0); RED CELL DISTRIBUTION WIDTH 14.4 % (11.5-15.0); WHITE BLOOD COUNT (AUTO) 9.8 K/uL (4.3-11.0)
[2024-04-29 07:27] LABS: CALCIUM, SERUM 8.5 mg/dL (8.5-10.1); CREATININE 0.5 mg/dL (0.6-1.3); MAGNESIUM 2.4 mg/dL (1.8-2.4); PHOSPHORUS 4.3 mg/dL (2.5-4.9); POTASSIUM 4.1 mmol/L (3.5-5.1)
--- NOTE | 2024-04-29 07:30 | NUR ---
RN OPENING NOTES: RECEIVED PATIENT AWAKE, RESTING, ALERT AND ORIENTED X 4. 8 S/P [employer]. ABLE TO MAKE NEEDS KNOWN. ON ROOM AIR TOLERATING WELL AND WITH CLEAR AND NONLABORED BREATHING. REPORTS TOLERABLE PAIN AT SURGICAL SITE 11/08, WILL REASSESS AND MEDICATE PER PROTOCOL. LINDA DRAIN ON RLQ, DRAINING SEROSANGUINEOUS FLUID ABOUT 25CC. NOTED 3 DRESSINGS FROM SURGICAL SITES, CDI. IV ACCESS ON RIGHT FOREARM G#20 INFUSING NS @ 75 ML/HR. KEPT SAFE AND COMFORTABLE. ALL FALL AND SAFETY MEASURES MAINTAINED: BED IN LOWEST AND LOCKED POSITION, BED ALARM ON, SIDE RAILS X 2, CALL LIGHT AN TABLE WITHIN PATIENT'S REACH. CARE ONGOING.
--- NOTE | 2024-04-29 09:05 | NUR ---
RN NOTES: PT REPORTS ABD PAIN 8-05/11, MEDICATED AND WILL REASSESS PER PROTOCOL
--- NOTE | 2024-04-29 13:06 | NUR ---
RN NOTES: PT REPORTS ABD PAIN 04/10, MEDICATED AND WILL REASSESS PER PROTOCOL
--- NOTE | 2024-04-29 14:46 | NUR ---
RN NOTES: JANNETH PATIENT AWAKE, RESTING, ALERT AND ORIENTED X 4. 8/ S/P LAP LAK[place]. ABLE TO MAKE NEEDS KNOWN. ON ROOM AIR TOLERATING WELL AND WITH CLEAR AND NONLABORED BREATHING. REPORTS TOLERABLE PAIN AT SURGICAL SITE 11/08, WILL REASSESS AND MEDICATE PER PROTOCOL. LINDA DRAIN ON RLQ, DRAINING SEROSANGUINEOUS FLUID ABOUT FROM 0700- 1430= 50CC. NOTED 3 DRESSINGS FROM SURGICAL SITES, CDI. IV ACCESS ON RIGHT FOREARM G#20 INFUSING NS @ 75 ML/HR. KEPT SAFE AND COMFORTABLE. ALL FALL AND SAFETY MEASURES MAINTAINED: BED IN LOWEST AND LOCKED POSITION, BED ALARM ON, SIDE RAILS X 2, CALL LIGHT AN TABLE WITHIN PATIENT'S REACH. CARE ONGOING, ENDORSE FOR JANNETH.
--- NOTE | 2024-04-29 15:10 | NUR ---
RN NOTES RECEIVED REPORT FROM BIANKA FLORES FOR CONTINUITY OF CARE. PATIENT IN BED WATCHING TV AT THIS TIME. A/O X 4 AND ABLE TO MAKE NEEDS KNOWN. ON ROOM AIR,TOLERATING WELL WITH NO SOB NOTED. LINDA DRAIN ON RLQ IN PLACE DRAINING SEROSANGUINEOUS DRAINAGE NOTED. THREE DRESSINGS FROM SURGICAL SITES ON ABDOMEN C/D/I. IV ACCESS ON RIGHT FOREARM G#20 INFUSING NS @ 75 ML/HR, NO S/SX OF INFILTRATION NOTED. SAFETY MEASURES MAINTAINED: BED IN LOWEST AND LOCKED POSITION, SIDE-RAILS X 2, CALL LIGHT AND TRAY TABLE WITHIN PATIENT'S REACH. PLAN OF CARE ONGOING.
--- NOTE | 2024-04-29 17:17 | NUR ---
RN NOTES PT C/O ACHING MID ABDOMINAL PAIN, 10/10 SCALE. PRN MORPHINE 2MG/ML IVP ADMINISTERED AT 1712. WILL REASSESS PT'S PAIN IN 30 MINUTES.
--- NOTE | 2024-04-29 18:42 | NUR ---
MS RN CLOSING NOTES PATIENT RESTING IN BED WATCHING TV AT THIS TIME. A/O X 4 AND ABLE TO VERBALIZED NEEDS. TOLERATING ROOM AIR WELL WITH NO ACUTE RESPIRATORY DISTRESS NOTED. LINDA DRAIN ON RLQ IN PLACE DRAINING SEROSANGUINEOUS DRAINAGE NOTED. THREE DRESSINGS ON SURGICAL SITES ON ABDOMEN C/D/I. IV ACCESS ON RIGHT FOREARM G#20 INFUSING NS @ 75 ML/HR, NO S/SX OF INFILTRATION NOTED. ALL NEEDS/CARE ATTENDED WELL. SAFETY MEASURES MAINTAINED: BED IN LOWEST AND LOCKED POSITION, SIDE-RAILS X 2, CALL LIGHT AND TRAY TABLE WITHIN PATIENT'S REACH. WILL ENDORSE PLAN OF CARE TO BUFFET WAITER/WAITRESS.
--- NOTE | 2024-04-29 19:19 | NUR ---
MS RN OPENING NOTE RECEIVED PATIENT IN BED AWAKE, A/OX4 ABLE TO MAKE NEEDS KNOWN, ON ROOM AIR NO SIGNS OF SOB AND DISTRESS, PATIENT HAS SURGICAL SITES ON THE ABDOMEN DRESSING ARE ALL CLEAN DRY AND INTACT , NOTED WITH LINDA DRAIN, IN PLACE, PATIENT HAS NO COMPLAINTS OF PAIN AT THIS TIME, WITH AN IV ACCESS ON THE RIGHT FOREARM #20G PATENT AND INTACT, WITH IV FLUID NS RUNNING @75ML/HR INFUSING WELL , SAFETY MEASURES MAINTAINED BED SET TO LOW AND LOCKED BED ALARM ON SIDE RAILS UPX3 PLACED CALL LIGHT BEDSIDE TABLE AND URINAL WITHIN EASY REACH WILL CONTINUE WITH PLAN OF CARE
--- NOTE | 2024-04-30 06:58 | NUR ---
MS RN CLOSING NOTE PATIENT IN BED AWAKE, A.OX4 ABLE TO MAKE NEEDS KNOWN ON ROOM AIR NO SIGNS OF SOB AND DISTRESS, WITH AN IV ACCESS ON THE RIGHT FOREARM #20G PATENT AND INTACT, RUNNING NS @75ML/HR INFUSING WELL,WITH LINDA DRAIN ON THE LLQ INTACT ALL DUE MEDS GIVEN KEPT PATIENT CLEAN AND DRY, SAFETY MEASURES MAINTAINED BED SET TO LOW AND LOCKED BED ALARM ON SIDE RAILS UPX3 PLACED CALL LIGHT BEDSIDE TABLE AND URINAL WITHIN EASY REACH WILL ENDORSE TO INCOMING NURSE FOR CONTINUITY OF CARE
[2024-04-30 07:30] VITALS: BP 91/55; TEMP 98.2; O2SAT 95
--- NOTE | 2024-04-30 07:40 | NUR ---
MS RN OPENING NOTE PATIENT IN BED AWAKE LYING DOWN, A.OX4 ABLE TO MAKE NEEDS KNOWN ON ROOM AIR NO SIGNS OF SOB AND DISTRESS, WITH AN IV ACCESS ON THE RIGHT FOREARM #20G PATENT AND INTACT, RUNNING NS @75ML/HR INFUSING WELL,WITH LINDA DRAIN ON THE LLQ C/D/I. SAFETY MEASURES MAINTAINED BED SET TO LOW AND LOCKED BED ALARM ON SIDE RAILS UPX3 PLACED CALL LIGHT BEDSIDE TABLE AND URINAL WITHIN EASY REACH. WILL CONTINUE TO MONITOR FOR CONTINUITY OF CARE.
--- NOTE | 2024-04-30 08:45 | NUR ---
RN NOTES DR KOVACS CAME IN AND REMOVED THE LINDA DRAIN WITH 10 CC OF SANGUINOUS DISCHARGE. PT TOLERATED WELL. WOUND SITE SECURED WITH OS PACK C/D/I.
[2024-04-30] MEDS: PANTOPRAZOLE 40 MG TABLET.DR PO SCH (09:41)
[2024-04-30] MEDS: OLANZAPINE 10 MG TABLET PO SCH (09:41)
--- NOTE | 2024-04-30 16:15 | NUR ---
MS ANNEALER HELPER NOTES PATIENT HAS D/C ORDERS FROM DR. POSEY. PATIENT WAS MADE AWARE. ALL D/C INSTRUCTIONS AND D/C MEDS ARE INSTRUCTED. SW HAS ENLISTED NO DISPOSITION FOR THE PATIENT. PATIENT WAS MEDICALLY CLEARED AND MEDICALLY STABLE. ABLE TO WALK 70-100 FEET AND WAS CLEARED BY PT. IV SITE REMOVED AND SECURED WITH C/D/I DRESSING. PATIENT LEFT THE UNIT AT 16:15 PM AMBULATORY WITH STEADY GAIT. CN AND ARE AWARE.
== END 2024-04-30 17:26 | DRG 418 ==
LOC: ER 02:00 → MED 05:00
PROVIDERS: ADMIT Nurse Practitioner Acute Care; ATTEND Nurse Practitioner Acute Care
PROC: 0FT44ZZ Resection of Gallbladder, Percutaneous Endoscopic Approach (ICD-10-PCS; principal; 2024-04-28)
DX: K80.12 Calculus of gallbladder with acute and chronic cholecystitis without obstruction (principal); E87.20 Acidosis, unspecified; F20.0 Paranoid schizophrenia; K82.1 Hydrops of gallbladder; Z59.00 Homelessness unspecified; J43.9 Emphysema, unspecified; F31.9 Bipolar disorder, unspecified; Z96.642 Presence of left artificial hip joint; F17.200 Nicotine dependence, unspecified, uncomplicated; F19.90 Other psychoactive substance use, unspecified, uncomplicated; Z79.899 Other long term (current) drug therapy; D72.829 Elevated white blood cell count, unspecified; R74.01 Elevation of levels of liver transaminase levels
CPT/HCPCS: 36415; 78226; 80048-TC; 80053-TC; 80076-TC; 82150-TC; 82248-TC; 83605-TC; 83690-TC; 83735-TC; 84100-TC; 85025-TC; 85610-TC; 85730-TC; 86850-TC; 87040-TC; 88304-TC; 97112-TC; 97116-TC; 97530-TC; A4216; A4223; A6403; A9537; G0378; G0480; J0330; J0690; J0696; J2250; J2270; J2405; J2470; J2543; J2704; J3010; J3490; J7030; J7060

== ENCOUNTER 2024-08-12 17:11 | Emergency (ER) | payer MEDICARE, OTHER ==
[~2024-08-12] VITALS: Ht 167.6 cm; Wt 83.9 kg
[~2024-08-12 17:11] MED LIST: OLAN10TA3 PO; OMEP20TA20 PO
[2024-08-12 17:43] LABS: BASOPHILS # (AUTO) 0.1 K/uL (0.0-0.2); BASOPHILS % (AUTO) 0.6 % (0.0-2.0); EOSINOPHILS # (AUTO) 0.1 K/uL (0.0-0.7); EOSINOPHILS % (AUTO) 1.1 % (0.0-6.0); HEMATOCRIT 37 % (39-51); HEMOGLOBIN 12.4 g/dL (13.5-17.5); LYMPHOCYTES # (AUTO) 2.2 K/uL (0.8-4.8); LYMPHOCYTES % (AUTO) 25.4 % (20.0-44.0); MEAN CORPUSCULAR HEMOGLOBIN 32 PG (26.0-33.0); MEAN CORPUSCULAR HGB CONC 34 g/dl (31.0-36.0); MEAN CORPUSCULAR VOLUME 94 fL (80-96); MONOCYTES # (AUTO) 0.7 K/uL (0.1-1.30); MONOCYTES % (AUTO) 7.7 % (2.0-12.0); NEUTROPHILS # (AUTO) 5.6 K/uL (1.8-8.9); NEUTROPHILS % (AUTO) 65.2 % (43.0-81.0); PLATELET COUNT (AUTO) 281 K/uL (150-450); RED BLOOD CELL COUNT(AUTO) 3.91 MIL/uL (4.5-6.0); RED CELL DISTRIBUTION WIDTH 14.8 % (11.5-15.0); WHITE BLOOD COUNT (AUTO) 8.6 K/uL (4.3-11.0)
[2024-08-12 17:56] LABS: CARBON DIOXIDE 28 mmol/L (21-32); CHLORIDE 104 mmol/L (98-107); CREATININE 0.7 mg/dL (0.6-1.3); GLUCOSE 86 mg/dL (74-106); POTASSIUM 3.8 mmol/L (3.5-5.1); SODIUM SERUM 140 mmol/L (136-145); UREA NITROGEN, BLOOD 9 mg/dL (7-18)
[2024-08-12 18:04] LABS: ALANINE AMINOTRANSFERASE 19 U/L (12-78); ALBUMIN 4.2 g/dL (3.4-5.0); ALCOHOL, BLOOD < 3 mg/dL (0-10); ALKALINE PHOSPHATASE 85 U/L (46-116); ASPARTATE AMINOTRANSFERASE 23 U/L (15-37); BILIRUBIN,DIRECT 0.1 mg/dL (0.0-0.2); BILIRUBIN,TOTAL 0.1 mg/dL (0.2-1.0); SALICYLATE 1.7 mg/dL (2.8-20.0); TOTAL PROTEIN, SERUM 7.5 g/dL (6.4-8.2)
[2024-08-12 18:05] LABS: ACETAMINOPHEN <10 ug/ml (10-30)
[2024-08-12 18:19] LABS: AMPHETAMINE, URINE NEGATIVE (NEGATIVE); BARBITURATE, URINE NEGATIVE (NEGATIVE); BENZODIAZEPINE, URINE NEGATIVE (NEGATIVE); COCCAINE, URINE NEGATIVE (NEGATIVE); OPIATE, URINE NEGATIVE (NEGATIVE); PHENCYCLIDINE SCREEN,URINE NEGATIVE (NEGATIVE)
[2024-08-12 18:20] LABS: APPEARANCE,URINE CLEAR (CLEAR); BILIRUBIN,URINE NEGATIVE (NEGATIVE); BLOOD, URINE NEGATIVE Ery/uL (NEGATIVE); CANNABINOID, URINE POSITIVE (NEGATIVE); COLOR,URINE YELLOW (YELLOW); KETONES,URINE NEGATIVE (NEGATIVE); LEUKOCYTE ESTERASE ,URINE NEGATIVE (NEGATIVE); NITRITE, URINE NEGATIVE (NEGATIVE); PROTEIN,URINE NEGATIVE (NEGATIVE); UGLUCOSE NEGATIVE (NEGATIVE); UROBILINOGEN,URINE 0.2 EU/dL (0.2)
[2024-08-12 23:18] VITALS: BP 166/74; TEMP 98.6; O2SAT 96
== END 2024-08-12 23:19 | disposition home or self-care (01) ==
LOC: ER 17:27
DX: Z13.9 Encounter for screening, unspecified (principal); R41.89 Other symptoms and signs involving cognitive functions and awareness; F17.200 Nicotine dependence, unspecified, uncomplicated; Z59.00 Homelessness unspecified; Z20.822 Contact with and (suspected) exposure to COVID-19
CPT/HCPCS: 36415; 80048-TC; 80076-TC; 85025-TC; G0480

== ENCOUNTER 2025-06-02 05:23 | Emergency (ER) | payer MEDICARE, OTHER ==
[~2025-06-02] VITALS: Ht 170.2 cm; Wt 70.3 kg
[2025-06-02 06:20] VITALS: TEMP 98.1
[2025-06-02 06:43] LABS: PLATELET COUNT (AUTO) 403 K/uL (150-450); RED BLOOD CELL COUNT(AUTO) 3.82 MIL/uL (4.5-6.0); RED CELL DISTRIBUTION WIDTH 14.7 % (11.5-15.0); WHITE BLOOD COUNT (AUTO) 9.9 K/uL (4.3-11.0)
[2025-06-02] MEDS ORDERED: OLANZAPINE 5 MG TABLET ONE (06:46)
[2025-06-02 06:49] LABS: CALCIUM, SERUM 9.4 mg/dL (8.5-10.1); CREATININE 0.8 mg/dL (0.6-1.3); SODIUM SERUM 137 mmol/L (136-145); UREA NITROGEN, BLOOD 11 mg/dL (7-18)
[2025-06-02 06:49] LABS: APPEARANCE,URINE CLEAR (CLEAR); BLOOD, URINE TRACE-INTA Ery/uL (NEGATIVE); LEUKOCYTE ESTERASE ,URINE NEGATIVE (NEGATIVE); NITRITE, URINE NEGATIVE (NEGATIVE); UGLUCOSE NEGATIVE (NEGATIVE)
[2025-06-02] MEDS: OLANZAPINE 5 MG TABLET PO ONE (06:49)
[2025-06-02 06:55] LABS: ADD URINE CULTURE NO; SQUAMOUS EPITHELIAL CELL,UR None Seen /HPF (None Seen)
[2025-06-02 06:57] LABS: ASPARTATE AMINOTRANSFERASE 19 U/L (15-37); TOTAL PROTEIN, SERUM 7.7 g/dL (6.4-8.2)
[2025-06-02 07:09] LABS: BARBITURATE, URINE NEGATIVE (NEGATIVE); BENZODIAZEPINE, URINE NEGATIVE (NEGATIVE); COCCAINE, URINE NEGATIVE (NEGATIVE); OPIATE, URINE NEGATIVE (NEGATIVE)
[2025-06-02 07:10] LABS: AMPHETAMINE, URINE POSITIVE (NEGATIVE); CANNABINOID, URINE POSITIVE (NEGATIVE)
[2025-06-02] MEDS ORDERED: IBUPROFEN 400 MG TABLET ONE (07:48)
[2025-06-02] MEDS: IBUPROFEN 400 MG TABLET PO ONE (07:52)
[2025-06-02] MEDS ORDERED: OLAN10TA3 PO (08:05)
[2025-06-02 08:18] VITALS: BP 142/87; O2SAT 97
== END 2025-06-02 08:18 | disposition home or self-care (01) ==
LOC: ER 05:28
DX: R45.851 Suicidal ideations (principal); F29 Unspecified psychosis not due to a substance or known physiological condition; R45.850 Homicidal ideations; Z20.822 Contact with and (suspected) exposure to COVID-19; Z79.899 Other long term (current) drug therapy
CPT/HCPCS: 99284; 87426; 85025; 80048; 80076; 36415; 80143; 80307; 81001; Q0163